=== PATIENT | male | born 1965 | race Caucasian/White ===

== ENCOUNTER 2016-12-22 20:36 | Emergency (ER) | payer OTHER ==
--- NOTE | 2016-12-22 21:22 | ER Document Report ---
ED Medical Screen (RME) - General Chief Complaint: Urinary Problem Stated Complaint: URINATING PAIN Time seen by provider: 21:20 Mode of Arrival: Ambulatory Information source: Patient Notes: 51-year-old man presents to ED for blood in his urine since this morning. States he is not having any pain but when he goes to the bathroom he notes something red in his urine. Denies any history of kidney stones any heavy activity or lifting weights. States he has a history of inguinal hernias but he doesn't remember them ever being treated he doesn't note any bulges anymore. I have greeted and performed a rapid initial assessment of this patient. A comprehensive ED assessment and evaluation of the patient, analysis of test results and completion of medical decision making process will be conducted by an additional ED providers. TRAVEL OUTSIDE OF THE [place] IN LAST 30 DAYS: No - Related Data Allergies/Adverse Reactions: Bee stings Allergy (Uncoded 05/12/13 08:05) Past Medical History Neurological Medical History: Denies: Hx Seizures Past Surgical History: Reports: Hx Orthopedic Surgery
[2016-12-22 23:18] LABS: APPEARANCE,URINE CLEAR; BILIRUBIN,URINE NEGATIVE (NEGATIVE); GLUCOSE, URINE NEGATIVE (NEGATIVE); KETONES,URINE NEGATIVE (NEGATIVE); LEUKOCYTE ESTERASE,URINE NEGATIVE (NEGATIVE); NITRITE,URINE NEGATIVE (NEGATIVE); PROTEIN,URINE NEGATIVE (NEGATIVE); URINE SPECIFIC GRAVITY 1.013; UROBILINOGEN,URINE NEGATIVE mg/dL (<2.0)
[2016-12-23 00:02] VITALS: BP 130/85
--- NOTE | 2016-12-23 00:03 | ER Document Report ---
ED GI/ - General Chief Complaint: Urinary Problem Stated Complaint: URINATING PAIN Time seen by provider: 00:00 Mode of Arrival: Ambulatory Notes: Patient is a 51-year-old male that comes emergency department for chief complaint of blood in his urine that he noticed starting this morning. Patient states has been nauseated today but denies any pain, dysuria, trauma. Patient denies history of kidney stones. Past medical history of hiatal hernia and peptic ulcers. Patient denies any other medical history. TRAVEL OUTSIDE OF THE [place] IN LAST 30 DAYS: No - Related Data Allergies/Adverse Reactions: Bee stings Allergy (Uncoded 05/12/13 08:05) Past Medical History - General Information source: Patient - Social History Smoking Status: Never Smoker Frequency of alcohol use: None Drug Abuse: None Lives with: Family Family History: Reviewed & Not Pertinent Patient has suicidal ideation: No Patient has homicidal ideation: No - Medical History Medical History: Negative Neurological Medical History: Denies: Hx Seizures Renal/ Medical History: Denies: Hx Peritoneal Dialysis Past Surgical History: Reports: Hx Orthopedic Surgery - Immunizations Immunizations up to date: Yes Hx Diphtheria, Pertussis, Tetanus Vaccination: Yes Review of Systems - Review of Systems Constitutional: No symptoms reported EENT: No symptoms reported Cardiovascular: No symptoms reported Respiratory: No symptoms reported Gastrointestinal: No symptoms reported Genitourinary: See HPI Male Genitourinary: See HPI Musculoskeletal: No symptoms reported Skin: No symptoms reported Hematologic/Lymphatic: No symptoms reported Neurological/Psychological: No symptoms reported Physical Exam - Vital signs Vitals: Temp Pulse Resp BP Pulse Ox 98.1 F 75 18 130/85 H 95 12/22/16 21:22 12/22/16 21:22 12/22/16 21:22 12/22/16 21:22 12/22/16 21:22 Interpretation: Normal - General General appearance: Appears well, Alert In distress: None - HEENT Head: Normocephalic, Atraumatic Eyes: Normal Pupils: PERRL - Respiratory Respiratory status: No respiratory distress Chest status: Nontender Breath sounds: Normal Chest palpation: Normal - Cardiovascular Rhythm: Regular Heart sounds: Normal auscultation Murmur: No - Abdominal Inspection: Normal Distension: No distension Bowel sounds: Normal Tenderness: Nontender. No: Tender Organomegaly: No organomegaly - Back Back: Normal, Nontender - Extremities General upper extremity: Normal inspection, Nontender, Normal ROM, Normal strength General lower extremity: Normal inspection, Nontender, Normal ROM, Normal strength - Neurological Neuro grossly intact: Yes Cognition: Normal Orientation: AAOx4 [place] Coma Scale Eye Opening: Spontaneous [place] Coma Scale Verbal: Oriented [place] Coma Scale Motor: Obeys Commands [place] Coma Scale Total: 15 Speech: Normal Motor strength normal: LUE, RUE, LLE, RLE Sensory: Normal - Psychological Associated symptoms: Normal affect, Normal mood - Skin Skin Temperature: Warm Skin Moisture: Dry Skin Color: Normal Course - Re-evaluation Re-evalutation: Patient unremarkable examination, no flank pain, no abdominal pain, no reported pain symptoms. Urinalysis shows hematuria. CT performed, shows no stone or any other abnormality. Discussed with Dr. Conner per [facility] guidelines. Discussed with patient in detail, patient will be referred to urology for additional management , encouraged him to follow very closely because this could be a cancerous source of the bleeding and he needs additional evaluation without delay. Patient states he will follow closely with urology and return for any concerning symptoms. - Vital Signs Vital signs: Temp Pulse Resp BP Pulse Ox 98.1 F 75 18 130/85 H 95 12/22/16 21:22 12/22/16 21:22 12/22/16 21:22 12/22/16 21:22 12/22/16 21:22 - Laboratory Laboratory results interpreted by me: 12/22/16 22:49 Urine Blood LARGE H Discharge - Discharge Clinical Impression: Hematuria Condition: Stable Disposition: HOME, SELF-CARE Additional Instructions: You do have a blood in your urine. Your CAT scan does not show any stone, mass, or other abnormality that can be seen on CAT scan imaging. You need a close follow-up with a urologist for additional workup to rule out any potential concerning causes of the blood in your urine (see referral below) . Return to the emergency department for any concerning symptoms including fever, severe abdominal or flank pain, vomiting, etc. [facility] [place] [address] Referrals: MIRELA URBANO MD [Primary Care Provider] - Follow up as needed
== END 2016-12-23 01:06 | disposition home or self-care (01) ==
LOC: ER 20:36
DX: R31.9 Hematuria, unspecified (principal); R30.0 Dysuria; R11.0 Nausea; Z91.030 Bee allergy status
CPT/HCPCS: 76380; 81001; 99284

== ENCOUNTER 2017-02-25 20:45 | Emergency (ER) | payer OTHER ==
[2017-02-25 21:17] VITALS: BP 137/85
[2017-02-25] MEDS ORDERED: ONDANSETRON 4 MG TAB.RAPDIS PO ONE (21:31)
--- NOTE | 2017-02-25 21:31 | ER Document Report ---
ED Medical Screen (RME) - General Stated Complaint: POSSIBLE REACTION TO MEDICATION Notes: 52 yo male c/o nausea, dizziness, numbness to fingers since 1500 today. started new med today, Adderall. First dose @ [address] Pete med prescribed by Dr Reeves, [facility] TRAVEL OUTSIDE OF THE [place] IN LAST 30 DAYS: No - Related Data Allergies/Adverse Reactions: Bee stings Allergy (Uncoded 05/12/13 08:05) Past Medical History Neurological Medical History: Denies: Hx Seizures Renal/ Medical History: Denies: Hx Peritoneal Dialysis GI Medical History: Reports: Hx Hiatal Hernia Past Surgical History: Reports: Hx Orthopedic Surgery - Immunizations Immunizations up to date: Yes Hx Diphtheria, Pertussis, Tetanus Vaccination: Yes Physical Exam - Vital signs Vitals: Temp Pulse Resp BP Pulse Ox 97.9 F 78 16 137/85 H 96 02/25/17 21:16 02/25/17 21:16 02/25/17 21:16 02/25/17 21:16 02/25/17 21:16 Course - Vital Signs Vital signs: Temp Pulse Resp BP Pulse Ox 97.9 F 78 16 137/85 H 96 02/25/17 21:16 02/25/17 21:16 02/25/17 21:16 02/25/17 21:16 02/25/17 21:16
--- NOTE | 2017-02-25 23:01 | ER Document Report ---
ED General - General Chief Complaint: Nausea/Vomiting Stated Complaint: POSSIBLE REACTION TO MEDICATION Notes: Patient is a 52-year-old male who presents with concerns that he is having an adverse reaction to Adderall. States he was started on this medication and took the first dose today. He was diagnosed with ADHD as indication for this medication. States 3 hours after starting the medicine he began to have multiple symptoms including nausea, vomiting, jitteriness and paresthesias in the bilateral upper extremities. Denies any history of similar symptoms in the past he denies any chest pain, shortness of breath, headache, neck pain, fever or altered mental status. He has not spoken to the primary care physician who prescribed this medication. States he came to the emergency department because the medication information provided with that prescription informed him to see see a doctor if he was having these symptoms. TRAVEL OUTSIDE OF THE [place] IN LAST 30 DAYS: No - Related Data Allergies/Adverse Reactions: Bee stings Allergy (Uncoded 05/12/13 08:05) Past Medical History - General Information source: Patient - Social History Smoking Status: Never Smoker Chew tobacco use (# tins/day): No Frequency of alcohol use: None Drug Abuse: None Lives with: Alone Family History: Reviewed & Not Pertinent Patient has suicidal ideation: No Patient has homicidal ideation: No Neurological Medical History: Denies: Hx Seizures Renal/ Medical History: Denies: Hx Peritoneal Dialysis GI Medical History: Reports: Hx Hiatal Hernia Past Surgical History: Reports: Hx Orthopedic Surgery - Immunizations Immunizations up to date: Yes Hx Diphtheria, Pertussis, Tetanus Vaccination: Yes Review of Systems - Review of Systems Notes: Constitutional: Negative for fever. HENT: Negative for sore throat. Eyes: Negative for visual changes. Cardiovascular: Negative for chest pain. Respiratory: Negative for shortness of breath. Gastrointestinal: Negative for abdominal pain, positive for nausea and vomiting Genitourinary: Negative for dysuria. Musculoskeletal: Negative for back pain. Skin: Negative for rash. Neurological: Negative for headaches, weakness or numbness. 10 point ROS negative except as marked above and in HPI. Physical Exam - Vital signs Vitals: Temp Pulse Resp BP Pulse Ox 97.9 F 78 16 137/85 H 96 02/25/17 21:16 02/25/17 21:16 02/25/17 21:16 02/25/17 21:16 02/25/17 21:16 Interpretation: Normal Notes: PHYSICAL EXAMINATION: GENERAL: Well-appearing, well-nourished and in no acute distress. HEAD: Atraumatic, normocephalic. EYES: Pupils equal round and reactive to light, extraocular movements intact, sclera anicteric, conjunctiva are normal. ENT: nares patent, oropharynx clear without exudates. Moist mucous membranes. NECK: Normal range of motion, supple without lymphadenopathy LUNGS: Breath sounds clear to auscultation bilaterally and equal. No wheezes rales or rhonchi. HEART: Regular rate and rhythm without murmurs ABDOMEN: Soft, nontender, normoactive bowel sounds. No guarding, no rebound. No masses appreciated. EXTREMITIES: Normal range of motion, no pitting or edema. No cyanosis. NEUROLOGICAL: No focal neurological deficits. Moves all extremities spontaneously and on command. PSYCH: Normal mood, normal affect. SKIN: Warm, Dry, normal turgor, no rashes or lesions noted. Course - Re-evaluation Re-evalutation: 02/25/17 23:00 Patient presents with symptoms most consistent with adverse medication effects. vitals wnl at time of assessment. No symptoms to suggest an actual allergic component to patient's presentation. Abdominal exam is benign. Denies any chest pain or SOB. Will give a low dose of ativan for patient to take at home to assist with symptoms. At this time will discharge with return precautions and follow-up recommendations. Verbal discharge instructions given a the bedside and opportunity for questions given. Medication warnings reviewed. Patient is in agreement with this plan and has verbalized understanding of return precautions and the need for primary care follow-up in the next 24-72 hours. - Vital Signs Vital signs: Temp Pulse Resp BP Pulse Ox 97.9 F 78 16 137/85 H 96 02/25/17 21:16 02/25/17 21:16 02/25/17 21:16 02/25/17 21:16 02/25/17 21:16 Discharge - Discharge Clinical Impression: Medication reaction Condition: Good Disposition: HOME, SELF-CARE Additional Instructions: Your symptoms should resolve in the next 12-24 hours. Return if your symptoms are not better by that time or are worsening at any point. Follow-up with your primary doctor in the next 1-2 days. Referrals: SHERLEY REESE MD [Primary Care Provider] - Follow up as needed
[2017-02-25] MEDS ORDERED: LORAZEPAM 1 MG TABLET PO ONE (23:02)
== END 2017-02-25 23:00 | disposition home or self-care (01) ==
LOC: ER 20:45
DX: T43.625A Adverse effect of amphetamines, initial encounter (principal); R11.2 Nausea with vomiting, unspecified; Z79.899 Other long term (current) drug therapy
CPT/HCPCS: 99283; S0119

== ENCOUNTER → 2017-04-09 | Outpatient (CLI) | payer OTHER | LOC: LAB 15:08 | PROVIDERS: ATTEND Physician Assistant | DX: A49.02 Methicillin resistant Staphylococcus aureus infection, unspecified site (principal) | CPT/HCPCS: 87070 ==

== ENCOUNTER → 2017-06-05 | Outpatient (CLI) | payer OTHER ==
--- NOTE | 2017-06-05 12:34 | RADIOLOGY REPORT (SQ) ---
EXAM DESCRIPTION: T SPINE AP/LAT COMPLETED DATE/TIME: 06/05/2017 12:16 pm REASON FOR STUDY: RADICULOPATHY, THORACOLUMBAR REGION M54.15 RADICULOPATHY, THORACOLUMBAR REGION COMPARISON: Lumbar spine films same date CT abdomen and pelvis 12/23/2016 NUMBER OF VIEWS: Two views. TECHNIQUE: AP and lateral radiographic images acquired of the thoracic spine. LIMITATIONS: None. FINDINGS: MINERALIZATION: Osteopenic ALIGNMENT: Normal. No scoliosis. VERTEBRAE: No fracture or bone lesion. Maintained height, normal segmentation. DISCS: No significant loss of height or significant narrowing. No large osteophytes. HARDWARE: None in the spine. MEDIASTINUM AND SOFT TISSUES: Normal heart size and aortic contour. No soft tissue abnormality. VISUALIZED LUNG THOMAS: Clear. OTHER: No other significant finding. IMPRESSION: NO SIGNIFICANT RADIOGRAPHIC FINDING IN THE THORACIC SPINE. TECHNICAL DOCUMENTATION: JOB ID: [id number] [employer]- All Rights Reserved
--- NOTE | 2017-06-05 12:35 | RADIOLOGY REPORT (SQ) ---
EXAM DESCRIPTION: LUMBAR SPINE COMPLETE COMPLETED DATE/TIME: 06/05/2017 12:16 pm REASON FOR STUDY: RADICULOPATHY, THORACOLUMBAR REGION M54.15 RADICULOPATHY, THORACOLUMBAR REGION COMPARISON: Thoracic spine films same date CT abdomen pelvis 12/23/2016 NUMBER OF VIEWS: Five views including obliques. TECHNIQUE: AP, lateral, oblique, and sacral radiographic images acquired of the lumbar spine. LIMITATIONS: None. FINDINGS: MINERALIZATION: Normal. SEGMENTATION: Normal. No transitional anatomy. ALIGNMENT: Normal. VERTEBRAE: Maintained height. No fracture or worrisome bone lesion. DISCS: Preserved height. No significant osteophytes or end plate irregularity. POSTERIOR ELEMENTS: Pedicles and facets are intact. No pars defect or posterior arch defects. HARDWARE: None in the spine. PARASPINAL SOFT TISSUES: Normal. PELVIS: Intact as visualized. No fractures or worrisome bone lesions. SI joints intact. OTHER: No other significant finding. IMPRESSION: NORMAL 5 VIEW LUMBAR SPINE. TECHNICAL DOCUMENTATION: JOB ID: [id number] [employer]- All Rights Reserved
== END ==
LOC: OD 11:55
PROVIDERS: ATTEND Physician Assistant
DX: M54.15 Radiculopathy, thoracolumbar region (principal)
CPT/HCPCS: 72070; 72110

== ENCOUNTER 2017-08-27 21:17 | Emergency (ER) | payer OTHER ==
[2017-08-27 22:18] VITALS: BP 128/82
[2017-08-27 22:38] LABS: APPEARANCE,URINE CLEAR; BILIRUBIN,URINE NEGATIVE (NEGATIVE); GLUCOSE, URINE NEGATIVE (NEGATIVE); KETONES,URINE NEGATIVE (NEGATIVE); LEUKOCYTE ESTERASE,URINE SMALL (NEGATIVE); NITRITE,URINE NEGATIVE (NEGATIVE); PROTEIN,URINE 100 mg/dL (NEGATIVE); URINE SPECIFIC GRAVITY 1.021
--- NOTE | 2017-08-28 00:10 | ER Document Report ---
ED General - General Chief Complaint: Problem with Urinary Catheter Stated Complaint: CATHETER ASSISTANCE Time Seen by Provider: 08/27/17 23:55 Notes: Patient is a pleasant 52-year-old male who presents with complaint of Gary catheter issue. He just had surgery today. A surgery in his bladder were mass was removed. His catheter in place. He said tonight he was switched to a larger Gary back so he can sleep through the night. He says when he tried to unhook the tube from the lock on his leg he cannot figure out how to unlock this block. He also is concerned because he feels that the Gary catheter tubing is pulled from his penis approximately 2 cm further than it was before. He has no pain in the bladder area. He has not had any fevers. Urinary catheter has been draining. He has no other complaints at this time. TRAVEL OUTSIDE OF THE [place] IN LAST 30 DAYS: No - Related Data Allergies/Adverse Reactions: Bee stings Allergy (Uncoded 05/12/13 08:05) Past Medical History - Social History Smoking Status: Unknown if Ever Smoked Frequency of alcohol use: None Drug Abuse: None Family History: Reviewed & Not Pertinent Patient has suicidal ideation: No Patient has homicidal ideation: No Neurological Medical History: Denies: Hx Seizures Renal/ Medical History: Denies: Hx Peritoneal Dialysis GI Medical History: Reports: Hx Hiatal Hernia Past Surgical History: Reports: Hx Orthopedic Surgery - Immunizations Immunizations up to date: Yes Hx Diphtheria, Pertussis, Tetanus Vaccination: Yes Review of Systems - Review of Systems Notes: My Normal Review Basic REVIEW OF SYSTEMS: CONSTITUTIONAL : Denies fever, chills, or sweats. Denies recent illness. RESPIRATORY: Denies cough, cold, or chest congestion. Denies shortness of breath, difficulty breathing, or wheezing. GASTROINTESTINAL: Denies abdominal pain. Denies nausea, vomiting, or diarrhea. Denies constipation. Last BM: GENITOURINARY: Gary catheter in place MUSCULOSKELETAL: Denies neck or back pain or joint pain or swelling. SKIN: Denies rash or skin lesions. NEUROLOGICAL: Denies altered mental status or loss of consciousness. Denies headache. Denies weakness or paralysis or loss of use of either side. Denies problems with gait or speech. Denies sensory or motor loss. ALL OTHER SYSTEMS REVIEWED AND NEGATIVE. Physical Exam - Vital signs Vitals: Temp Pulse Resp BP Pulse Ox 97.7 F 82 16 128/82 H 95 08/27/17 22:12 08/27/17 22:12 08/27/17 22:12 08/27/17 22:12 08/27/17 22:12 - Notes Notes: General Appearance: Well nourished, alert, cooperative, no acute distress, no obvious discomfort. L appearing. Vitals: reviewed, See vital signs table. Eyes: PERRL, EOMI, Conjuctiva clear Abdomen: Normal BS, soft, No rigidity, No abdominal tenderness, No guarding, no rebound, no abdominal masses, no organomegaly Genital: No bleeding around the urethral meatus. Bedside ultrasound does show balloon in the bladder. I did flush the catheter and saline was flushed into the bladder on ultrasound. Skin: warm, dry, appropriate color, no rash Neuro: speech clear, oriented x 3, normal affect, responds appropriately to questions. Course - Re-evaluation Re-evalutation: 08/28/17 05:35 Patient's Gary catheter is in place. I did show the patient how to work the small walk in his thigh to release the tubing. I then changed his catheter back to the larger catheter bag and removed his leg bag. Patient looks well. I informed him return to ER if he has any pain or pressure over the bladder area , a large amount of blood going into the catheter bag, or if he feels unwell. Patient agrees with plan and will be discharged home. Dictation of this chart was performed using voice recognition software; therefore, there may be some unintended grammatical errors. - Vital Signs Vital signs: Temp Pulse Resp BP Pulse Ox 97.7 F 82 16 128/82 H 95 08/27/17 22:12 08/27/17 22:12 08/27/17 22:12 08/27/17 22:12 08/27/17 22:12 - Laboratory Laboratory results interpreted by me: 08/27/17 22:00 Urine Protein 100 H Urine Blood LARGE H Urine Urobilinogen 4.0 H Ur Leukocyte Esterase SMALL H Discharge - Discharge Clinical Impression: Gary catheter in place Condition: Good Disposition: HOME, SELF-CARE Additional Instructions: Please return to the ER if you have pain or pressure in your lower abdomen, fevers, or a large amount of blood in your urine. Referrals: MIRELA URBANO MD [Primary Care Provider] - Follow up as needed
== END 2017-08-28 00:12 | disposition home or self-care (01) ==
LOC: ER 21:17
DX: Z46.6 Encounter for fitting and adjustment of urinary device (principal); Z91.030 Bee allergy status
CPT/HCPCS: 81001; 99283

== ENCOUNTER 2017-09-07 23:03 | Emergency (ER) | payer OTHER ==
[2017-09-08] MEDS ORDERED: ONDANSETRON 4 MG TAB.RAPDIS PO ONE (01:21)
--- NOTE | 2017-09-08 01:24 | ER Document Report ---
ED Medical Screen (RME) - General Chief Complaint: Flu Symptoms Stated Complaint: POSSIBLE ALLERGIC REACTION Time Seen by Provider: 09/08/17 01:21 Notes: 52-year-old male, chief complaint of fever, cough, vomiting. He states that he went to his primary care provider for his symptoms which started yesterday, placed on Mucinex, when he took the Mucinex 600 mg he began to vomit, he vomited 4 times tonight and afterwards decided to come in. He denies shortness of breath, headache, abdominal pain. He also has had a Gary catheter recently removed by his urologist, this was placed during a biopsy in his bladder. TRAVEL OUTSIDE OF THE [place] IN LAST 30 DAYS: No - Related Data Allergies/Adverse Reactions: Bee stings Allergy (Uncoded 09/08/17 00:21) Past Medical History Neurological Medical History: Denies: Hx Seizures Renal/ Medical History: Denies: Hx Peritoneal Dialysis GI Medical History: Reports: Hx Hiatal Hernia Past Surgical History: Reports: Hx Orthopedic Surgery - Immunizations Immunizations up to date: Yes Hx Diphtheria, Pertussis, Tetanus Vaccination: Yes Physical Exam - Vital signs Vitals: Temp Pulse BP Pulse Ox 99.0 F 101 H 125/80 96 09/08/17 00:22 09/08/17:22 09/08/17 00:09/08/17 00:22 - Respiratory Respiratory status: No respiratory distress. No: Labored, Tachypnea Breath sounds: Normal. No: Decreased air movement - Abdominal Inspection: Normal Tenderness: Nontender. No: Tender, Guarding Course - Re-evaluation Re-evalutation: Patient well-appearing, no abdominal tenderness on limited exam in triage, his main complaint now is his nausea. - Vital Signs Vital signs: Temp Pulse Resp BP Pulse Ox 99.0 F 101 H 125/80 96 09/08/17 00:22 09/08/17 00:22 09/08/17 00:22 09/08/17:22
[2017-09-08 01:54] LABS: ABSOLUTE BASOPHILS # (AUTO) 0.1 10^3/uL (0.0-0.2); ABSOLUTE EOSINOPHILS # (AUTO) 0.2 10^3/uL (0.0-0.6); ABSOLUTE LYMPHOCYTES (AUTO) 1.4 10^3/uL (0.5-4.7); ABSOLUTE MONOCYTES (AUTO) 1.5 10^3/uL (0.1-1.4); ABSOLUTE NEUT (AUTO) 6.4 10^3/uL (1.7-8.2); BASOPHILS % (AUTO) 0.7 % (0-2); EOSINOPHILS % (AUTO) 2.2 % (0-6); HEMATOCRIT 44.8 % (37.9-51.0); HEMOGLOBIN 16.1 g/dL (13.5-17.0); HGB HCT DIFFERENCE 3.5; LYMPHOCYTES % (AUTO) 14.7 % (13-45); MEAN CORPUSCULAR HEMOGLOBIN 30.6 pg (27.0-33.4); MEAN CORPUSCULAR HGB CONC 35.9 g/dL (32.0-36.0); MEAN CORPUSCULAR VOLUME 85 fl (80-97); MONOCYTES % (AUTO) 15.8 % (3-13); RED BLOOD COUNT 5.26 10^6/uL (4.35-5.55); RED CELL DISTRIBUTION WIDTH 12.8 % (11.5-14.0); SEGMENTED NEUTROPHILS % (AUTO) 66.6 % (42-78); WHITE BLOOD COUNT 9.6 10^3/uL (4.0-10.5)
[2017-09-08 02:00] LABS: APPEARANCE,URINE CLEAR; BILIRUBIN,URINE NEGATIVE (NEGATIVE); GLUCOSE, URINE NEGATIVE (NEGATIVE); KETONES,URINE NEGATIVE (NEGATIVE); LEUKOCYTE ESTERASE,URINE SMALL (NEGATIVE); NITRITE,URINE NEGATIVE (NEGATIVE); PROTEIN,URINE 30 mg/dL (NEGATIVE); URINE SPECIFIC GRAVITY 1.014; UROBILINOGEN,URINE NEGATIVE mg/dL (<2.0)
[2017-09-08 02:05] LABS: ALANINE AMINOTRANSFERASE 43 U/L (21-72); ALBUMIN 4.2 g/dL (3.5-5.0); ALKALINE PHOSPHATASE 115 U/L (38-126); ANION GAP 12 (5-19); ASPARTATE AMINO TRANSFERASE 27 U/L (17-59); BILIRUBIN,DIRECT 0.4 mg/dL (0.0-0.4); BILIRUBIN,TOTAL 0.9 mg/dL (0.2-1.3); BLOOD UREA NITROGEN 10 mg/dL (7-20); CALCIUM 9.4 mg/dL (8.4-10.2); CARBON DIOXIDE 25 mmol/L (22-30); CHLORIDE 103 mmol/L (98-107); CREATININE RESULT 1.48 mg/dL (0.52-1.25); GLUCOSE 92 mg/dL (75-110); POTASSIUM 4.6 mmol/L (3.6-5.0); SODIUM 140.1 mmol/L (137-145); TOTAL PROTEIN 7.3 g/dL (6.3-8.2)
--- NOTE | 2017-09-08 04:29 | RADIOLOGY REPORT (SQ) ---
EXAM DESCRIPTION: CHEST PA/LAT COMPLETED DATE/TIME: 09/08/2017 3:25 am REASON FOR STUDY: fever, cough COMPARISON: 01/08/2009 EXAM PARAMETERS: NUMBER OF VIEWS: two views TECHNIQUE: Digital Frontal and Lateral radiographic views of the chest acquired. RADIATION DOSE: NA LIMITATIONS: none FINDINGS: LUNGS AND PLEURA: No opacities, masses or pneumothorax. No pleural effusion. MEDIASTINUM AND HILAR STRUCTURES: No masses or contour abnormalities. HEART AND VASCULAR STRUCTURES: Heart normal size. No evidence for failure. BONES: No acute findings. HARDWARE: None in the chest. OTHER: No other significant finding. IMPRESSION: NO SIGNIFICANT RADIOGRAPHIC FINDING IN THE CHEST. TECHNICAL DOCUMENTATION: JOB ID: [id number] [employer]- All Rights Reserved
[2017-09-08] MEDS ORDERED: ONDANSETRON ODT 4 MG TAB (6 TAB/DSPK) PO PRN (06:02)
--- NOTE | 2017-09-08 06:05 | ER Document Report ---
ED General - General Chief Complaint: Flu Symptoms Stated Complaint: POSSIBLE ALLERGIC REACTION Time Seen by Provider: 09/08/17 01:21 Notes: 52-year-old male, chief complaint of fever, cough, vomiting. He states that he went to his primary care provider for his symptoms which started yesterday, placed on Mucinex, when he took the Mucinex 600 mg he began to vomit, he vomited 4 times tonight and afterwards decided to come in. He denies shortness of breath, headache, abdominal pain. He also has had a Gary catheter recently removed by his urologist, this was placed during a biopsy in his bladder. TRAVEL OUTSIDE OF THE [place] IN LAST 30 DAYS: No - Related Data Allergies/Adverse Reactions: Bee stings Allergy (Uncoded 09/08/17 00:21) Past Medical History - General Information source: Patient - Social History Smoking Status: Never Smoker Frequency of alcohol use: None Drug Abuse: None Lives with: Family Family History: Reviewed & Not Pertinent - Medical History Medical History: Negative Neurological Medical History: Denies: Hx Seizures Renal/ Medical History: Denies: Hx Peritoneal Dialysis GI Medical History: Reports: Hx Hiatal Hernia Past Surgical History: Reports: Hx Orthopedic Surgery - Immunizations Immunizations up to date: Yes Hx Diphtheria, Pertussis, Tetanus Vaccination: Yes Review of Systems - Review of Systems Constitutional: See HPI EENT: See HPI Cardiovascular: No symptoms reported Respiratory: See HPI Gastrointestinal: See HPI Genitourinary: No symptoms reported Male Genitourinary: No symptoms reported Musculoskeletal: No symptoms reported Skin: No symptoms reported Hematologic/Lymphatic: No symptoms reported Neurological/Psychological: No symptoms reported Physical Exam - Vital signs Vitals: Temp Pulse BP Pulse Ox 99.0 F 101 H 125/80 96 09/08/17 00:22 09/08/17 00:22 09/08/17 00:22 09/08/17 00:22 Interpretation: Normal - General General appearance: Appears well, Alert In distress: None - HEENT Head: Normocephalic, Atraumatic Eyes: Normal Conjunctiva: Normal Extraocular movements intact: Yes Eyelashes: Normal Pupils: PERRL Ears: Normal External canal: Normal Tympanic membrane: Normal Sinus: Normal Nasal: Clear rhinorrhea Mouth/Lips: Normal Mucous membranes: Normal Pharynx: Normal Neck: Normal - Respiratory Respiratory status: No respiratory distress Chest status: Nontender Breath sounds: Normal Chest palpation: Normal - Cardiovascular Rhythm: Regular Heart sounds: Normal auscultation Murmur: No - Abdominal Inspection: Normal Distension: No distension Bowel sounds: Normal Tenderness: Nontender. No: Tender, Guarding Organomegaly: No organomegaly - Back Back: Normal, Nontender - Extremities General upper extremity: Normal inspection, Nontender, Normal color, Normal ROM , Normal temperature General lower extremity: Normal inspection, Nontender, Normal color, Normal ROM , Normal temperature, Normal weight bearing. No: Beverly's sign - Neurological Neuro grossly intact: Yes Cognition: Normal Orientation: AAOx4 [place] Coma Scale Eye Opening: Spontaneous [place] Coma Scale Verbal: Oriented Delgado Coma Scale Motor: Obeys Commands Delgado Coma Scale Total: 15 Speech: Normal Motor strength normal: LUE, RUE, LLE, RLE Sensory: Normal - Psychological Associated symptoms: Normal affect, Normal mood - Skin Skin Temperature: Warm Skin Moisture: Dry Skin Color: Normal Course - Re-evaluation Re-evalutation: Patient has some sinus congestion but otherwise he is actually very well- appearing. No CVA tenderness, soft abdomen. After Zofran he states he feels great. CBC shows elevated monocytes which is nonspecific with no leukocytosis. Chemistry generally unremarkable. Urinalysis shows some hematuria, this is most likely secondary to his recent catheterization. Chest x-ray unremarkable, influenza negative. Patient asking to leave. Patient will be provided with nausea medication. He states he has a follow-up with his provider today. He was provided with copies of his reports, discussed return precautions, patient states satisfaction and agreement. - Vital Signs Vital signs: Temp Pulse Resp BP Pulse Ox 98 F 82 18 142/88 H 96 09/08/17 06:15 09/08/17 06:15 09/08/17 06:15 09/08/17 06:15 09/08/17 06:15 - Laboratory Result Diagrams: 09/08/17 01:25 09/08/17 01:25 Laboratory results interpreted by me: 09/08/17 09/08/17 09/08/17 01:25 01:25 01:30 Monocytes % 15.8 H Absolute Monocytes 1.5 H Creatinine 1.48 H Est GFR (Non-Af Amer) 50 L Urine Protein 30 H Urine Blood LARGE H Ur Leukocyte Esterase SMALL H Discharge - Discharge Clinical Impression: Vomiting Qualifiers: Vomiting type: unspecified Vomiting Intractability: non-intractable Nausea presence: with nausea Qualified Code(s): R11.2 - Nausea with vomiting, unspecified Condition: Stable Disposition: HOME, SELF-CARE Additional Instructions: Your laboratory workup does not show any concerning abnormalities. The exact cause of your vomiting is not certain. Take the Zofran if needed. Follow-up with your primary provider today as planned. Return to the emergency department for any concerning symptoms. Prescriptions: Ondansetron [Zofran Odt 4 mg Tablet] 1 - 2 tab PO Q4H PRN #15 tab.rapdis PRN Reason: For Nausea/Vomiting
[2017-09-08 06:23] VITALS: BP 142/88
== END 2017-09-08 07:43 | disposition home or self-care (01) ==
LOC: ER 23:03
DX: R11.2 Nausea with vomiting, unspecified (principal); R05 Cough; R50.9 Fever, unspecified; J34.89 Other specified disorders of nose and nasal sinuses; R09.81 Nasal congestion; R31.9 Hematuria, unspecified; Z98.890 Other specified postprocedural states; Z91.030 Bee allergy status
CPT/HCPCS: 99283; 36415; 85025; 80053; 81001; 87804; 71020; S0119

== ENCOUNTER 2017-11-28 15:56 | Emergency (ER) | payer OTHER ==
[2017-11-28 16:11] VITALS: BP 139/85
[2017-11-28] MEDS ORDERED: DIPH/PERTUSS(ACELL)/TETANUS VAC/PF 0.5 ML SYR (>=10YO) IM ONE (17:48)
--- NOTE | 2017-11-28 19:03 | RADIOLOGY REPORT (SQ) ---
EXAM DESCRIPTION: HAND LEFT 3 VIEWS COMPLETED DATE/TIME: 11/28/2017 6:32 pm REASON FOR STUDY: bite, pain COMPARISON: None. EXAM PARAMETERS: NUMBER OF VIEWS: Three views. TECHNIQUE: AP, lateral and oblique radiographic images acquired of the left hand. LIMITATIONS: None. FINDINGS: MINERALIZATION: Normal. BONES: No acute fracture or dislocation. No worrisome bone lesions. JOINTS: No effusions. SOFT TISSUES: No soft tissue swelling. No foreign body. OTHER: No other significant finding. IMPRESSION: NEGATIVE STUDY OF THE LEFT HAND. NO RADIOGRAPHIC EVIDENCE OF ACUTE INJURY. TECHNICAL DOCUMENTATION: JOB ID: [id number] [employer]- All Rights Reserved
--- NOTE | 2017-11-28 19:04 | RADIOLOGY REPORT (SQ) ---
EXAM DESCRIPTION: KNEE LEFT 4 VIEW COMPLETED DATE/TIME: 11/28/2017 6:32 pm REASON FOR STUDY: fall, pain COMPARISON: None. NUMBER OF VIEWS: Four views. TECHNIQUE: AP, lateral, and both oblique radiographic images acquired of the left knee. LIMITATIONS: None. FINDINGS: MINERALIZATION: Normal. BONES: No acute fracture or dislocation. No worrisome bone lesions. JOINT: A small joint effusion is present. SOFT TISSUES: No soft tissue swelling. No radio-opaque foreign body. OTHER: No other significant finding. IMPRESSION: Small joint effusion without evidence of acute osseous injury. TECHNICAL DOCUMENTATION: JOB ID: [id number] [employer]- All Rights Reserved
--- NOTE | 2017-11-28 19:22 | ER Document Report ---
ED Animal Bite - General Mode of Arrival: Ambulatory Information source: Patient TRAVEL OUTSIDE OF THE [place] IN LAST 30 DAYS: No - HPI Location of injury: LUE Severity of injury: Bitten Onset: This morning Type of animal: Cat Appearance of animal: Appeared well Animal's immunizations: UTD <RAUL MONROE - Last Filed: 11/28/17 22:13> <NATHAN GUZMÁN - Last Filed: 11/29/17 00:16> - General Chief Complaint: Cat Bite Stated Complaint: HAND INJURY Time Seen by Provider: 11/28/17 17:45 Notes: 52 year old male presents to the ED complaining of a cat bite to the left hand that occurred at 1030. Patient reports it was his own cat who's vaccinations are up to date. Bite area became erythematous around noon today. Patient is additionally complaining of left knee pain that started 5 days ago. Patient denies any recent injury or trauma to the knee. (RAUL MONROE) - Related Data Allergies/Adverse Reactions: Bee stings Allergy (Uncoded 11/28/17 15:57) Past Medical History - General Information source: Patient - Social History Smoking Status: Never Smoker Chew tobacco use (# tins/day): No Frequency of alcohol use: Occasional Drug Abuse: None Family History: Reviewed & Not Pertinent Patient has suicidal ideation: No Patient has homicidal ideation: No Neurological Medical History: Denies: Hx Seizures Renal/ Medical History: Denies: Hx Peritoneal Dialysis GI Medical History: Reports: Hx Hiatal Hernia Past Surgical History: Reports: Hx Orthopedic Surgery - Immunizations Immunizations up to date: Yes Hx Diphtheria, Pertussis, Tetanus Vaccination: Yes <RAUL MONROE - Last Filed: 11/28/17 22:13> Review of Systems - Review of Systems Constitutional: No symptoms reported EENT: No symptoms reported Cardiovascular: No symptoms reported Respiratory: No symptoms reported Gastrointestinal: No symptoms reported Genitourinary: No symptoms reported Male Genitourinary: No symptoms reported Musculoskeletal: See HPI, Other - left knee pain and cat bite to left hand Skin: No symptoms reported Hematologic/Lymphatic: No symptoms reported Neurological/Psychological: No symptoms reported -: Yes All other systems reviewed and negative <RAUL MONROE - Last Filed: 11/28/17 22:13> Physical Exam - General General appearance: Alert In distress: None - HEENT Head: Normocephalic, Atraumatic Eyes: Normal Extraocular movements intact: Yes Pupils: PERRL - Respiratory Respiratory status: No respiratory distress - Cardiovascular Rhythm: Regular - Abdominal Inspection: Normal - Back Back: Normal - Extremities General upper extremity: Normal ROM. No: Normal inspection - see hand exam below General lower extremity: Normal inspection, Normal ROM Hand: Other - Puncture wounds to the dorsal and radial aspect of the left hand consistent with a cat bite. Surrounding erythema. Full range of motion.. No: Normal - Neurological Neuro grossly intact: Yes Cognition: Normal Orientation: AAOx4 [place] Coma Scale Eye Opening: Spontaneous [place]gado Coma Scale Verbal: Oriented Delgado Coma Scale Motor: Obeys Commands Delgado Coma Scale Total: 15 - Psychological Associated symptoms: Normal affect, Normal mood - Skin Skin Temperature: Warm Skin Moisture: Dry Skin Color: Normal <RAUL MONROE - Last Filed: 11/28/17 22:13> - Vital signs Vitals: Temp Pulse Resp BP Pulse Ox 98.0 F 84 20 139/85 H 98 11/28/17 16:09 11/28/17 16:09 11/28/17 16:09 11/28/17 16:09 11/28/17 16:09 Course <RAUL MONROE - Last Filed: 11/28/17 22:13> <NATHAN GUZMÁN - Last Filed: 11/29/17 00:16> - Re-evaluation Re-evalutation: 11/28 Patient with Bite to left hand. Also complaining of knee pain that is unrelated. Patient with tenderness to palpation of his left medial knee. Small joint effusion. Patient will be given Augmentin for the cat bite. Cat is his own and is up-to-date on vaccinations. Patient also be given Tylenol with codeine and he was placed in an Zaid wrap. He is to follow-up with his doctor and return if he is worsening or concerning symptoms of his hands. Stable for discharge. Understands and agrees with plan (NATHAN GUZMÁN) - Vital Signs Vital signs: Temp Pulse Resp BP Pulse Ox 98.0 F 84 20 139/85 H 98 11/28/17 16:09 11/28/17 16:09 11/28/17 16:09 11/28/17 16:09 11/28/17 16:09 Procedures - Immobilization Left Knee Pre-Proc Neuro Vasc Exam: Normal Immobilizer type: Zaid wrap Performed by: PCT Post-Proc Neuro Vasc Exam: Normal Alignment checked and good: Yes <NATHAN GUZMÁN - Last Filed: 11/29/17 00:16> Discharge <RAUL MONROE - Last Filed: 11/28/17 22:13> <NATHAN GUZMÁN - Last Filed: 11/29/17 00:16> - Discharge Clinical Impression: Cat bite Qualifiers: Encounter type: initial encounter Qualified Code(s): W55.01XA - Bitten by cat, initial encounter Knee pain, left Qualifiers: Chronicity: acute Qualified Code(s): M25.562 - Pain in left knee Condition: Stable Disposition: HOME, SELF-CARE Instructions: Animal Bites ([facility]), Suspected Internal Knee Injury ([facility]), Knee Effusion ([facility]) Prescriptions: Ondansetron [Zofran Odt 4 mg Tablet] 1 tab PO Q6HP PRN #15 tab.rapdis PRN Reason: For Nausea/Vomiting Acetaminophen with Codeine [Tylenol with Codeine #3 Tablet] 1 tab PO Q4 PRN #10 tab PRN Reason: Amox Tr/Potassium Clavulanate [Augmentin 875-125 Tablet] 1 tab PO BID 10 Days tablet Referrals: MIRELA URBANO MD [Primary Care Provider] - Follow up in 3-5 days Scribe Attestation: 11/29/17 00:16 I personally performed the services described in the documentation, reviewed and edited the documentation which was dictated to the scribe in my presence, and it accurately records my words and actions. (NATHAN UGZMÁN) Scribe Documentation - Scribe Written by Keenan:: Keenan Aquino, 11/28/2017 192 acting as scribe for :: Darci <RAUL MONROE - Last Filed: 11/28/17 22:13>
[2017-11-28] MEDS ORDERED: AMOXICILLIN TR/POT CLAVULANATE 250-125 MG TAB PO ONE (19:34)
[2017-11-28] MEDS ORDERED: AMOXICILLIN TR/POT CLAVULANATE 500-125 MG TAB PO ONE (19:34)
[2017-11-28] MEDS ORDERED: ONDANSETRON 4 MG TAB.RAPDIS PO ONE (19:35)
[2017-11-28] MEDS: ACETAMINOPHEN WITH CODEINE #3 TABLET PO PRN ×3 (20:20→21:30)
== END 2017-11-28 21:36 | disposition home or self-care (01) ==
LOC: ER 15:56
DX: S61.452A Open bite of left hand, initial encounter (principal); W55.01XA Bitten by cat, initial encounter; M25.562 Pain in left knee; M25.462 Effusion, left knee; Z91.030 Bee allergy status
CPT/HCPCS: 99283; 90471; 73130; 73562; 90715; J3490; S0119

== ENCOUNTER 2018-11-18 01:34 | Observation (INO) | payer OTHER ==
--- NOTE | 2018-11-18 02:07 | ER Document Report ---
ED Cardiac - General Chief Complaint: Chest Pain Stated Complaint: CHEST PAIN Time Seen by Provider: 11/18/18 01:46 Mode of Arrival: Ambulatory Information source: Patient Notes: Patient is a 53-year-old male who presents with chief complaint of chest pain which has resolved just prior to arrival. Patient reports this chest pain has been intermittent over several months now. He reports that this afternoon he had a pain at 2 PM, he states he took 181 mg aspirin and the pain was resolved. Patient tried going to sleep tonight and at approximately 1230 this morning the pain reoccurred. He reports the pain is a sharp stabbing pain under the left breast, denies any radiation, denies any associated symptoms such as nausea, shortness of breath or diaphoresis. Patient denies any cardiac history. Patient reports he did have a stress test done approximately 5 years ago. TRAVEL OUTSIDE OF THE [place] IN LAST 30 DAYS: No - Related Data Allergies/Adverse Reactions: Bee stings Allergy (Uncoded 11/28/17 15:57) Past Medical History - General Information source: Patient - Social History Smoking Status: Never Smoker Frequency of alcohol use: None Drug Abuse: None Family History: Reviewed & Not Pertinent Neurological Medical History: Denies: Hx Seizures Renal/ Medical History: Denies: Hx Peritoneal Dialysis GI Medical History: Reports: Hx Hiatal Hernia Past Surgical History: Reports: Hx Inguinal Hernia - with repair, Hx Orthopedic Surgery - Immunizations Immunizations up to date: Yes Hx Diphtheria, Pertussis, Tetanus Vaccination: Yes Review of Systems - Review of Systems Cardiovascular: Chest pain. denies: Palpitations, Heart racing Respiratory: denies: Short of breath Gastrointestinal: denies: Nausea, Vomiting -: Yes All other systems reviewed and negative Physical Exam - Vital signs Vitals: Temp Pulse Resp BP Pulse Ox 97.6 F 73 18 137/85 H 95 11/18/18 01:40 11/18/18 01:40 11/18/18 01:40 11/18/18 01:40 11/18/18 01:40 - Notes Notes: PHYSICAL EXAMINATION: GENERAL: Well-appearing, well-nourished and in no acute distress. HEAD: Atraumatic, normocephalic. EYES: Pupils equal round and reactive to light, extraocular movements intact, sclera anicteric, conjunctiva are normal. ENT: Nares patent, oropharynx clear without exudates. Moist mucous membranes. NECK: Normal range of motion, supple without lymphadenopathy LUNGS: Breath sounds clear to auscultation bilaterally and equal. No wheezes rales or rhonchi. HEART: Regular rate and rhythm without murmurs ABDOMEN: Soft, nontender, nondistended abdomen. No guarding, no rebound. No masses appreciated. Musculoskeletal: Normal range of motion, no pitting or edema. No cyanosis. NEUROLOGICAL: Cranial nerves grossly intact. Normal speech, normal gait. Normal sensory, motor exams PSYCH: Normal mood, normal affect. SKIN: Warm, Dry, normal turgor, no rashes or lesions noted. Course - Re-evaluation Re-evalutation: Patient presents with complaint of chest pain that has already resolved. Patient does not have any known cardiac risk factors, he denies any past medical history other than a inguinal hernia repair. He does report family history of hypertension he denies any current diagnoses himself, he is a non-smoker. He does report he had a stress test done few years ago. His primary care provider is Dr. Hiro Pete. Patient has already taken a total of 162 mg of baby aspirin prior to arrival so that will not be ordered here in the emergency department. CBC, CMP and initial troponin are unremarkable. Chest x-ray is negative for any acute findings. EKG sinus rhythm, rate of 66, normal axis, no ST segment elevations or depressions. Patient continues to be chest pain-free. Will monitor patient and check a delta troponin. 11/18/18 05:35 Patient remains resting in stretcher with eyes closed. Patient had a long run of ventricular tachycardia on the monitor. Patient denies having any chest pain or palpitations. Repeat EKG and repeat troponin are being performed at this time. 11/18/18 05:[address] Weller, hospitalist on duty who would like to hold off until second troponin is resulted prior to accepting the patient for admission. 11/18/18 06:40 Repeat troponin is negative. Patient remains chest pain-free. Will proceed with admission at this time. 11/18/18 07:42 Admit accepted by Alexandrea Zamarripa NP. - Vital Signs Vital signs: Temp Pulse Resp BP Pulse Ox 97.6 F 73 11 L 132/81 H 87 L 11/18/18 01:40 11/18/18 01:40 11/18/18 07:00 11/18/18 03:01 11/18/18 07:00 - Laboratory Result Diagrams: 11/18/18 02:00 11/18/18 02:00 Laboratory results interpreted by me: 11/18/18 02:00 Creatine Kinase 50 L Discharge - Discharge Clinical Impression: Ventricular tachycardia Chest pain Qualifiers: Chest pain type: unspecified Qualified Code(s): R07.9 - Chest pain, unspecified Condition: Stable Disposition: ADMITTED INPATIENT Admitting Provider: Hospitalist Unit Admitted: Telemetry Referrals: MIRELA URBANO MD [Primary Care Provider] - Follow up as needed
[2018-11-18 02:14] LABS: ABSOLUTE BASOPHILS # (AUTO) 0.2 10^3/uL (0.0-0.2); ABSOLUTE EOSINOPHILS # (AUTO) 0.3 10^3/uL (0.0-0.6); ABSOLUTE LYMPHOCYTES (AUTO) 2.3 10^3/uL (0.5-4.7); ABSOLUTE NEUT (AUTO) 5.4 10^3/uL (1.7-8.2); BASOPHILS % (AUTO) 1.8 % (0-2); EOSINOPHILS % (AUTO) 3.6 % (0-6); HEMATOCRIT 45.2 % (37.9-51.0); HEMOGLOBIN 16.1 g/dL (13.5-17.0); LYMPHOCYTES % (AUTO) 25.2 % (13-45); MEAN CORPUSCULAR HEMOGLOBIN 30.4 pg (27.0-33.4); MEAN CORPUSCULAR HGB CONC 35.7 g/dL (32.0-36.0); MEAN CORPUSCULAR VOLUME 85 fl (80-97); MONOCYTES % (AUTO) 10.5 % (3-13); PLATELET COUNT 238 10^3/uL (150-450); RED BLOOD COUNT 5.31 10^6/uL (4.35-5.55); RED CELL DISTRIBUTION WIDTH 13.2 % (11.5-14.0); SEGMENTED NEUTROPHILS % (AUTO) 58.9 % (42-78); TOTAL CELLS COUNTED % (AUTO) 100 %; WHITE BLOOD COUNT 9.1 10^3/uL (4.0-10.5)
[2018-11-18 02:27] LABS: ALANINE AMINOTRANSFERASE 24 U/L (21-72); ALBUMIN 3.7 g/dL (3.5-5.0); ALKALINE PHOSPHATASE 81 U/L (38-126); ANION GAP 8 (5-19); ASPARTATE AMINO TRANSFERASE 20 U/L (17-59); BILIRUBIN,DIRECT 0.2 mg/dL (0.0-0.4); BILIRUBIN,TOTAL 0.5 mg/dL (0.2-1.3); BLOOD UREA NITROGEN 15 mg/dL (7-20); CALCIUM 9.5 mg/dL (8.4-10.2); CARBON DIOXIDE 27 mmol/L (22-30); CHLORIDE 106 mmol/L (98-107); CREATINE KINASE 50 U/L (55-170); GLUCOSE 97 mg/dL (75-110); POTASSIUM 4.1 mmol/L (3.6-5.0); TOTAL PROTEIN 6.7 g/dL (6.3-8.2)
--- NOTE | 2018-11-18 02:28 | RADIOLOGY REPORT (SQ) ---
EXAM DESCRIPTION: XR CHEST 1 VIEW COMPLETED DATE/TME: 11/18/2018 01:58 CLINICAL HISTORY: 53 years Male, chest pain COMPARISON:09/08/2017 NUMBER OF VIEWS/TECHNIQUE: 1/AP FINDINGS: Adequate lung volume, clear parenchyma, normal cardiac silhouette, and intact bony thorax. IMPRESSION: No acute cardiopulmonary findings.
[2018-11-18 02:39] LABS: CREATINE KINASE MB 0.33 ng/mL (<4.55)
[2018-11-18 02:40] LABS: TROPONIN I < 0.012 ng/mL
--- NOTE | 2018-11-18 07:54 | EKG REPORT ---
SEVERITY:- BORDERLINE ECG - SINUS RHYTHM BORDERLINE T WAVE ABNORMALITIES : Confirmed by: Jorge Coyne MD 18-Nov-2018 07:53:53
--- NOTE | 2018-11-18 07:54 | EKG REPORT ---
SEVERITY:- BORDERLINE ECG - SINUS RHYTHM BORDERLINE T WAVE ABNORMALITIES : Confirmed by: Jorge Coyne MD 18-Nov-2018 07:54:09
[2018-11-18] MEDS ORDERED: ONDANSETRON HCL INJ/PF 4 MG/2 ML SDV IV PRN (09:12)
[2018-11-18] MEDS ORDERED: NITROGLYCERIN 0.4 MG/TAB 25 TAB/BOTTLE SL PRN (09:12)
[2018-11-18] MEDS ORDERED: MAG HYDROX/AL HYDROX/SIMETH SUSP 30 ML UDCUP PO PRN (09:12)
--- NOTE | 2018-11-18 09:35 | PDOC H&P ---
History of Present Illness Admission Date/PCP: 11/18/18 07:56 MIRELA URBANO MD Patient complains of: Sharp, intermittent, epigastric pain History of Present Illness: MARIUM SOLIMAN is a 53 year old male with a past medical history significant for asthma and GI bleed related to esophagitis with ulcerations who presented to the emergency department today with a complaint of intermittent atypical chest pain described as sharp, nonradiating, lasting 10-20 seconds, and not associated with dyspnea, diaphoresis, nausea or vomiting. He indicates that the pain is located in his right upper quadrant area, however continues to use the phrase "chest pain"when describing his discomfort. He reports that the pain has been intermittent over several months but has seemed to increase in frequency over the previous 2 weeks. He finally decided to present to the emergency department after having 2 episodes in 1 day not relieved by OTC aspirin. Of note, the patient reports a history of GI bleed related to esophagitis and ulcerations; reports that he "self manages" this condition by monitoring his total NSAID and aspirin intake. He does state that his last EGD and colonoscopy were approximately 1 year ago and at that time was found to have esophagitis. Evaluation in the emergency department is essentially unremarkable within normal laboratory evaluation and 2- troponins, EKG demonstrating normal sinus rhythm, benign chest x-ray, and stable vital signs. He did have a 9-second run of narrow complex tachycardia that occurred while he was sleeping; ED provider reports that she woke him from a sound sleep shortly after the SVT was observed and at that time the patient reported he was asymptomatic. He is referred to the hospitalist service for observational admission to complete chest pain workup. Past Medical History Cardiac Medical History: Reports: None Pulmonary Medical History: Reports: Asthma EENT Medical History: Reports: None Neurological Medical History: Reports: None Endocrine Medical History: Reports: None Renal/ Medical History: Reports: None Malignancy Medical History: Reports: None GI Medical History: Reports: Gastroesophageal Reflux Disease, Hiatal Hernia Musculoskeltal Medical History: Reports: None Skin Medical History: Reports: None Psychiatric Medical History: Reports: None Traumatic Medical History: Reports: None Hematology: Reports: None Infectious Medical History: Reports: None Past Surgical History Past Surgical History: Reports: Herniorrhaphy, Orthopedic Surgery Social History Information Source: Patient Lives with: Alone Smoking Status: Never Smoker Frequency of Alcohol Use: None Last Alcohol Use: 08/30/18 - The patient was evasive when answering questions regarding alcohol intake Hx Recreational Drug Use: No Hx Prescription Drug Abuse: No - Advance Directive Resuscitation Status: Full Code Surrogate healthcare decision maker:: The patient's brother, Mj Soliman Family History Family History: Reviewed & Not Pertinent Parental Family History Reviewed: Yes Children Family History Reviewed: Yes Sibling(s) Family History Reviewed.: Yes Medication/Allergy Home Medications: No Home Medications 11/18/18 Allergies/Adverse Reactions: Bee stings Allergy (Uncoded 11/28/17 15:57) Review of Systems Constitutional: ABSENT: chills, fever(s), headache(s), weight gain, weight loss Eyes: ABSENT: visual disturbances Ears: ABSENT: hearing changes Cardiovascular: PRESENT: as per HPI Respiratory: ABSENT: cough, hemoptysis Gastrointestinal: PRESENT: heartburn. ABSENT: abdominal pain, constipation, diarrhea, hematemesis, hematochezia, melena, nausea, vomiting Genitourinary: ABSENT: dysuria, hematuria Musculoskeletal: ABSENT: joint swelling Integumentary: ABSENT: rash, wounds Neurological: ABSENT: abnormal gait, abnormal speech, confusion, dizziness, focal weakness, syncope Psychiatric: ABSENT: anxiety, depression, homidical ideation, suicidal ideation Endocrine: ABSENT: cold intolerance, heat intolerance, polydipsia, polyuria Hematologic/Lymphatic: ABSENT: easy bleeding, easy bruising Physical Exam Vital Signs: Temp Pulse Resp BP Pulse Ox 97.6 F 73 17 123/89 H 94 11/18/18 01:40 11/18/18 01:40 11/18/18 08:24 11/18/18 08:24 11/18/18 08:24 Intake & Output 11/17/18 11/18/18 11/19/18 06:59 06:59 06:59 Weight 127.2 kg General appearance: PRESENT: no acute distress, obese, well-developed, well- nourished Head exam: PRESENT: atraumatic, normocephalic Eye exam: PRESENT: conjunctiva pink, EOMI, PERRLA. ABSENT: scleral icterus Ear exam: PRESENT: normal external ear exam Mouth exam: PRESENT: moist, tongue midline Neck exam: ABSENT: carotid bruit, JVD, lymphadenopathy, thyromegaly Respiratory exam: PRESENT: clear to auscultation fabian, symmetrical, unlabored. ABSENT: rales, rhonchi, wheezes Cardiovascular exam: PRESENT: RRR, +S1, +S2. ABSENT: diastolic murmur, rubs, systolic murmur Pulses: PRESENT: normal dorsalis pedis pul Vascular exam: PRESENT: normal capillary refill GI/Abdominal exam: PRESENT: normal bowel sounds, soft. ABSENT: distended, guarding, mass, organolmegaly, rebound, tenderness Rectal exam: PRESENT: deferred Extremities exam: PRESENT: full ROM. ABSENT: calf tenderness, clubbing, pedal edema Neurological exam: PRESENT: alert, awake, oriented to person, oriented to place, oriented to time, oriented to situation, CN II-XII grossly intact. ABSENT: motor sensory deficit Psychiatric exam: PRESENT: appropriate affect, normal mood. ABSENT: homicidal ideation, suicidal ideation Skin exam: PRESENT: dry, intact, warm. ABSENT: cyanosis, rash Results Laboratory Results: 11/18/18 02:00 11/18/18 02:00 11/18/18 11/18/18 02:00 02:00 WBC 9.1 RBC 5.31 Hgb 16.1 Hct 45.2 MCV 85 MCH 30.4 MCHC 35.7 RDW 13.2 Plt Count 238 Seg Neutrophils % 58.9 Lymphocytes % 25.2 Monocytes % 10.5 Eosinophils % 3.6 Basophils % 1.8 Absolute Neutrophils 5.4 Absolute Lymphocytes 2.3 Absolute Monocytes 1.0 Absolute Eosinophils 0.3 Absolute Basophils 0.2 Sodium 141.0 Potassium 4.1 Chloride 106 Carbon Dioxide 27 Anion Gap 8 BUN 15 Creatinine 1.19 Est GFR ( Amer) > 60 Est GFR (Non-Af Amer) > 60 Glucose 97 Calcium 9.5 Total Bilirubin 0.5 AST 20 ALT 24 Alkaline Phosphatase 81 Total Protein 6.7 Albumin 3.7 11/18/18 11/18/18 11/18/18 02:00 02:00 05:37 Creatine Kinase 50 L CK-MB (CK-2) 0.33 Troponin I < 0.012 < 0.012 Impressions: Chest X-Ray 11/18/18 01:58 IMPRESSION: No acute cardiopulmonary findings. Assessment & Plan - Diagnosis (1) Atypical chest pain Is this a current diagnosis for this admission?: Yes Plan: Heart Score 1; 0.9-1.7%. The ED provider initially planned to discharge with outpatient follow-up, however, he then had a 9-second run of narrow complex tachycardia. Therefore, he is admitted to observational status. Low suspicion for ACS; believe the patient's atypical symptoms are related to hi s history of esophagitis/reflux. The patient will be admitted to the medical floor on continuous cardiac telemetry. Given his history of esophagitis and GI bleeds; will trial GI cocktail and obtain occult stool. Daily aspirin and statin therapy. Nitroglycerin SL tabs for cardiac chest pain. Will also evaluate lipase as the patient was slightly evasive when discussing alcohol intake in the past. We will continue to trend troponins. Will evaluate TSH, A1c, and lipid panel. Echocardiogram is ordered. Anticipate discharging the patient to home with cardiology follow-up for outpatient stress testing tomorrow. (2) Narrow complex tachycardia Is this a current diagnosis for this admission?: Yes Plan: 9-second run of narrow complex tachycardia that spontaneously aborted. Patient was woken from asleep; reported he was asymptomatic at that time. He denies any history of cardiac dysrhythmias. We will obtain TSH. He is normotensive at present; if he is noted to be persistently hypertensive, would consider Coreg as first-line. We will plan for outpatient cardiology referral. (3) History of GI bleed Is this a current diagnosis for this admission?: Yes Plan: The patient denies recent history of GI bleeding; denies met ataxia and melena. He does not on home medications. Reports that his last EGD was greater than 1 year ago and at that time he was found to have esophagitis. Continue enteric-coated aspirin 81 mg daily. Prevacid twice daily. GI cocktail x1. Maalox as needed for reflux symptoms. Will check occult stool. (4) Obesity (BMI 35.0-39.9 without comorbidity) Is this a current diagnosis for this admission?: Yes Plan: Dietary discretion is advised. Cardiac diet. - Time Time Spent: 30 to 50 Minutes Medications reviewed and adjusted accordingly: Yes Anticipated discharge: Home Within: within 24 hours
[2018-11-18] MEDS ORDERED: LIDOCAINE 2% VISCOUS SOLN 20 ML UDCUP PO ONE (10:00)
[2018-11-18] MEDS ORDERED: MAG HYDROX/AL HYDROX/SIMETH SUSP 30 ML UDCUP PO ONE (10:00)
[2018-11-18] MEDS ORDERED: METOCLOPRAMIDE HCL ORAL SOLN 10 MG/10 ML UDCUP PO ONE (10:00)
[2018-11-18] MEDS: ASPIRIN 81 MG TABLET, ENT COATED PO SCH (11:04)
[2018-11-18] MEDS: LANSOPRAZOLE 30 MG TAB.RAP.DR PO SCH ×2 (11:10→17:13)
[2018-11-18] MEDS ORDERED: ATORVASTATIN CALCIUM 20 MG TABLET PO SCH (22:00)
--- NOTE | 2018-11-18 22:13 | XCELERA REPORT ---
[address] [address] Transthoracic Echocardiogram Report Name: MARIUM SOLIMAN Age: 53 yrs Gender: Male : 1965 Patient Status: Inpatient Patient Location: [address] [place], [place] [address] Study Date: 11/18/2018 05:29 PM Height: 74 in Weight: 280 lb BSA: 2.5 m2 Procedure: A two-dimensional transthoracic echocardiogram with color flow and Doppler was performed. Study Quality: Poor. Poor endocardial visualisation.Interpretatation is subject to severe techical and suboptimal severe limitation. Reason For Study: Chest pain History: Chest pain. Ordering Physician: ANIL MCCOY Performed By: Melissa Hook Interpretation Summary Poor endocardial visualisation.Interpretatation is subject to severe techical and suboptimal severe limitation. Chest pain Proabaly normal LV size and probably no LVH.Probably no wall motion abnormality,but cannot be sure.LVEf is 60%. The right ventricle is not well visualized secondary to technical limitations Right atrium not well visualized secondary to technical limitations The left atrium is not well visualized secondary to technical limitations Probably no MS,or MR and probably no or AR.Probaly trace TR with normal RVSP of 26 mm of Hg , with RA mean of 10.Probably no pericardial effusion. MMode/2D Measurements & Calculations RVDd: 2.5 cm LVIDd: 5.6 cm FS: 33.2 % Ao root diam: 2.7 cm IVSd: 0.97 cm LVIDs: 3.8 cm EDV(Teich): 155.8 ml Ao root area: 5.8 cm2 LVPWd: 1.0 cm ESV(Teich): 60.4 ml LA dimension: 3.6 cm EF(Teich): 61.2 % Doppler Measurements & Calculations MV E max jose a: MV P1/2t max jose a: Ao V2 max: LV V1 max P.7 cm/sec 72.8 cm/sec 98.2 cm/sec 3.0 mmHg MV A max jose a: MV P1/2t: 52.6 msec Ao max P.9 mmHg LV V1 max: 60.2 cm/sec MVA(P1/2t): 4.2 cm2 86.6 cm/sec MV E/A: 0.84 MV dec slope: 405.2 cm/sec2 MV dec time: 0.21 sec PA V2 max: TR max jose a: MV P1/2t-pr_phl: 94.1 cm/sec 195.5 cm/sec 52.6 msec PA max P.5 mmHgTR max P.3 mmHg Left Ventricle Proabaly normal LV size and probably no LVH.Probably no wall motion abnormality,but cannot be sure.LVEf is 60%. Doppler measurements suggest impaired left ventricular relaxation, which is associated with grade I/IV or mild diastolic dysfunction. Right Ventricle The right ventricle is not well visualized secondary to technical limitations. Atria Right atrium not well visualized secondary to technical limitations. The left atrium is not well visualized secondary to technical limitations. Mitral Valve Probably no MS,or MR and probably no or AR.Probaly trace TR with normal RVSP of 26 mm of Hg , with RA mean of 10.Probably no pericardial effusion. : ANIL MCCOY > Jenn Lindsay
[2018-11-19] MEDS: LANSOPRAZOLE 30 MG TAB.RAP.DR PO SCH (05:12)
[2018-11-19 07:54] LABS: CHOLESTEROL 143.47 mg/dL (0-200); TRIGLYCERIDES 194 mg/dL (<150)
[2018-11-19 08:05] LABS: DIRECT LDL 75 mg/dL (<100)
[2018-11-19 08:09] LABS: VLDL CHOLESTEROL 38.8 mg/dL (10-31)
[2018-11-19] MEDS: ASPIRIN 81 MG TABLET, ENT COATED PO SCH (09:17)
[2018-11-19 14:10] VITALS: BP 117/81
--- NOTE | 2018-11-20 08:59 | PDOC DISCHARGE SUMMARY ---
General - Admit/Disc Date/PCP Admission Date/Primary Care Provider: 11/18/18 07:56 MIRELA URBANO MD Discharge Date: 11/19/18 - Discharge Diagnosis (1) Atypical chest pain Is this a current diagnosis for this admission?: Yes Summary: Heart Score 1; 0.9-1.7%. The ED provider initially planned to discharge with outpatient follow-up, however, he then had a 9-second run of narrow complex tachycardia. Therefore, he was admitted to observational status. Low suspicion for ACS; believe the patient's atypical symptoms are related to his history of esophagitis/reflux. EKG showed NSR CXR was normal Laboratory evaluation was unremarkable; including a normal lipase and TSH. Lipid panel revealed LDL 75, HDL 30, Triglycerides 194, TChol 143 Troponins were negative x4 Echocardiogram was a poor quality study; LVEF is 60%, no obvious wall motion defects, however, could not be entirely ruled out. The patient was admitted to the medical floor on continuous cardiac telemetry; he remained in NSR throughout his stay. He was placed on daily aspirin 81 mg, PPI twice daily, and statin therapy. The patient had no further episodes of chest pain and on day of discharge was asymptomatic and in stable condition. He was discharged to home with self-care; he was instructed to follow-up with his primary care provider within [address] Figueroa, cardiology, within 2- 4 weeks to arrange for outpatient stress testing. He was provided prescription for Prevacid, aspirin, and atorvastatin. He has been instructed to return to the emergency department as needed for any concerning symptoms. (2) Narrow complex tachycardia Is this a current diagnosis for this admission?: Yes Summary: While in the emergency department, the patient was observed to have a 9-second run of narrow complex tachycardia that spontaneously aborted. The patient was asymptomatic and denied chest pain at the time of the episode. He had no further episodes during his admission. TSH 1.67 (3) History of GI bleed Is this a current diagnosis for this admission?: Yes Summary: Patient was started on daily PPI. (4) Obesity (BMI 35.0-39.9 without comorbidity) Is this a current diagnosis for this admission?: Yes Summary: Dietary discretion is advised. - Additional Information Resuscitation Status: Full Code Discharge Diet: Cardiac Discharge Activity: Activity As Tolerated, Balance Activity w/Rest, Slowly Increase Activity Prescriptions: Aspirin [Ecotrin 81 mg EC Tablet] 81 mg PO DAILY #90 tabec Atorvastatin Calcium [Lipitor 20 mg Tablet] 20 mg PO QHS #30 tablet Lansoprazole [Prevacid] 30 mg PO QAM #30 capsule. Home Medications: Aspirin [Ecotrin 81 mg EC Tablet] 81 mg PO DAILY #90 tabec 11/19/18 Atorvastatin Calcium [Lipitor 20 mg Tablet] 20 mg PO QHS #30 tablet 11/19/18 Lansoprazole [Prevacid] 30 mg PO QAM #30 capsule. 11/19/18 History of Present Illness History of Present Illness: MARIUM SOLIMAN is a 53 year old male with a past medical history significant for asthma and GI bleed related to esophagitis with ulcerations who presented to the emergency department today with a complaint of intermittent atypical chest pain described as sharp, nonradiating, lasting 10-20 seconds, and not associated with dyspnea, diaphoresis, nausea or vomiting. He indicates that the pain is located in his right upper quadrant area, however continues to use the phrase "chest pain"when describing his discomfort. He reports that the pain has been intermittent over several months but has seemed to increase in frequency over the previous 2 weeks. He finally decided to present to the emergency department after having 2 episodes in 1 day not relieved by OTC aspirin. Of note, the patient reports a history of GI bleed related to esophagitis and ulcerations; reports that he "self manages" this condition by monitoring his total NSAID and aspirin intake. He does state that his last EGD and colonoscopy were approxi mately 1 year ago and at that time was found to have esophagitis. Evaluation in the emergency department is essentially unremarkable within normal laboratory evaluation and 2- troponins, EKG demonstrating normal sinus rhythm, benign chest x-ray, and stable vital signs. He did have a 9-second run of narrow complex tachycardia that occurred while he was sleeping; ED provider reports that she woke him from a sound sleep shortly after the SVT was observed and at that time the patient reported he was asymptomatic. He is referred to the hospitalist service for observational admission to complete chest pain workup. Physical Exam Vital Signs: Temp Pulse Resp BP Pulse Ox 98.7 F 68 20 117/81 95 11/19/18 14:06 11/19/18 14:06 11/19/18 14:06 11/19/18 14:06 11/19/18 14:06 Intake & Output 11/19/18 11/20/18 11/21/18 06:59 06:59 06:59 Intake Total 118 Output Total 225 Balance -107 Weight 124.1 kg General appearance: PRESENT: no acute distress, cooperative, obese, well- developed, well-nourished Head exam: PRESENT: atraumatic, normocephalic Eye exam: PRESENT: conjunctiva pink, EOMI, PERRLA. ABSENT: scleral icterus Ear exam: PRESENT: normal external ear exam Mouth exam: PRESENT: moist, tongue midline Neck exam: ABSENT: carotid bruit, JVD, lymphadenopathy, thyromegaly Respiratory exam: PRESENT: clear to auscultation fabian. ABSENT: rales, rhonchi, wheezes Cardiovascular exam: PRESENT: RRR. ABSENT: diastolic murmur, rubs, systolic murmur Pulses: PRESENT: normal dorsalis pedis pul Vascular exam: PRESENT: normal capillary refill GI/Abdominal exam: PRESENT: normal bowel sounds, soft. ABSENT: distended, guarding, mass, organolmegaly, rebound, tenderness Rectal exam: PRESENT: deferred Extremities exam: PRESENT: full ROM. ABSENT: calf tenderness, clubbing, pedal edema Neurological exam: PRESENT: alert, awake, oriented to person, oriented to place, oriented to time, oriented to situation, CN II-XII grossly intact. ABSENT: motor sensory deficit Psychiatric exam: PRESENT: appropriate affect, normal mood. ABSENT: homicidal ideation, suicidal ideation Skin exam: PRESENT: dry, intact, warm. ABSENT: cyanosis, rash Results Laboratory Results: 11/18/18 02:00 11/18/18 02:00 11/18/18 11/18/18 11/18/18 02:00 02:00 05:37 Creatine Kinase 50 L CK-MB (CK-2) 0.33 Troponin I < 0.012 < 0.012 11/18/18 11/18/18 14:34 19:10 Creatine Kinase CK-MB (CK-2) Troponin I < 0.012 < 0.012 Impressions: Chest X-Ray 11/18/18 01:58 IMPRESSION: No acute cardiopulmonary findings. Qualifiers - * PATIENT BEING DISCHARGED WITH ANY OF THE FOLLOWING DIAGNOSIS: No Plan Discharge Plan: Discharged home with self-care. Follow-up with primary care provider within 1 week. Follow-up with Dr. Lindsay, cardiology, within 2-4 weeks for outpatient stress testing. Return to the emergency department as needed for concerning symptoms. Time Spent: Less than 30 Minutes
== END 2018-11-19 14:24 | disposition home or self-care (01) ==
LOC: ER 01:34 → EH 07:56 → INTOOBSV 07:56 → 4S 13:58
PROVIDERS: ADMIT Internal Medicine; ATTEND Internal Medicine
DX: R07.89 Other chest pain (principal); K21.9 Gastro-esophageal reflux disease without esophagitis; K44.9 Diaphragmatic hernia without obstruction or gangrene; Z91.030 Bee allergy status; Z79.82 Long term (current) use of aspirin; Z79.899 Other long term (current) drug therapy; I47.1 Supraventricular tachycardia; Z87.19 Personal history of other diseases of the digestive system; E66.9 Obesity, unspecified; J45.909 Unspecified asthma, uncomplicated
CPT/HCPCS: 93005; 99285; 36415 ×2; 82553; 82550; 83690; 84443; 85025; 80053; 84484; 80061; 93306; 71045; 93010; J3490 ×3; G0378